=== PATIENT | female | born 1960 | race Caucasian/White ===

== ENCOUNTER → 2016-09-25 | Outpatient (CLI) | payer OTHER ==
--- NOTE | 2016-09-25 09:53 | REPMRS ---
Patient History The patient states she had a clinical breast exam in August 2016. Patient is postmenopausal. Family history of colorectal cancer in maternal grandmother at age 64. Benign radio exam breast specimen of the right breast, October 27, 2012. Benign stereotatic loc for ea lesion of the right breast, October 27, 2012. Took hormonal contraceptives for 2 years. Digital Mammo Screening Bilat: September 25, 2016 - Exam #: [id number] Bilateral CC and MLO view(s) were taken. Technologist: Gabriela Guillermo, Technologist Prior study comparison: September 24, 2015, bilateral digital mammo screening bilat performed at [facility]. September 25, 2014, bilateral digital mammo screening bilat performed at [facility]. September 29, 2013, bilateral digital mammo screening bilat performed at [facility]. FINDINGS: There are scattered fibroglandular densities. There is a needle biopsy marker clip in the right breast. There has been no change in the appearance of the mammogram from the prior studies. There is a mild amount of scattered fibroglandular density which is fairly symmetric. There is no interval development of dominant mass, architectural distortion, or clustered microcalcification suggestive of malignancy. ASSESSMENT: BI-RADS/ACR category 2 mammogram. Benign finding(s). Recommendation Routine screening mammogram in 1 year (for women over age 40). This mammogram was interpreted with the aid of an FDA-approved computer-aided dectection system. Electronically Signed By: Mo Greenberg MD 09/25/16 [id number]
== END ==
LOC: M RAD 08:28
PROVIDERS: ATTEND Obstetrics & Gynecology
DX: Z12.39 Encounter for other screening for malignant neoplasm of breast (principal); Z78.0 Asymptomatic menopausal state

== ENCOUNTER → 2017-09-16 | Outpatient (CLI) | payer OTHER | LOC: M RAD 13:33 | DX: Z12.31 Encounter for screening mammogram for malignant neoplasm of breast (principal); Z92.0 Personal history of contraception; Z92.89 Personal history of other medical treatment | CPT/HCPCS: 77067 ==

== ENCOUNTER → 2018-09-26 | Outpatient (CLI) | payer OTHER ==
--- NOTE | 2018-09-27 06:44 | REP ---
BILATERAL SCREENING DIGITAL MAMMOGRAM WITH 3D TOMOSYNTHESIS: There are no palpable abnormalities or other breast complaints. The the patient states she had a clinical breast examination September 24, 2017. The patient had right breast biopsy in October 2012 that was negative for carcinoma. The Tyrer-Cuzick Score is: 6.4% . Comparisons are 09/24/2015 and 09/29/2013. There are scattered areas of fibroglandular density. There is no dominant mass, micro calcific cluster or architectural distortion that would indicate malignancy. There is a surgical clip in the right breast, unchanged. There are no additional findings on 3D tomosynthesiss. There is no change from the prior study. Impression: BIRADS/ACR category 1 mammogram. Negative. Recommendation: Routine annual screening mammography. This mammogram was interpreted with the aid of a FDA approved computer-aided detection system. A. Negative mammogram reports should not delay biopsy if a dominant or clinically suspicious mass is present. B. Not all breast cancers are identified by mammography or tomosynthesis. C. Adenosis and dense breasts may obscure an underlying neoplasm. Patient letter M1. Electronically Signed by Timmy Zarco MD 09/27/2018 06:36 A
== END ==
LOC: M RAD 17:32
PROVIDERS: ATTEND Obstetrics & Gynecology
DX: Z12.31 Encounter for screening mammogram for malignant neoplasm of breast (principal)

== ENCOUNTER → 2019-10-17 | Outpatient (CLI) | payer BC ==
--- NOTE | 2019-11-02 16:53 | REPMRS ---
Patient History The patient states she had a clinical breast exam in 09/2019. Patient is postmenopausal. Family history of colorectal cancer at age 64 in maternal grandmother. Benign radio exam breast specimen of the right breast, October 27, 2012. Benign stereotatic loc for ea lesion of the right breast, October 27, 2012. Took hormonal contraceptives for 2 years. Digital Woman Screen Mammo: October 17, 2019 - Exam #: [id number] Bilateral CC and MLO view(s) were taken. Technologist: Ailyn Chamorro, Technologist Prior study comparison: September 26, 2018, bilateral digital mammo screening bilat, performed at [facility]. September 16, 2017, bilateral digital mammo screening bilat, performed at [facility]. September 25, 2016, bilateral digital mammo screening bilat, performed at [facility]. October 11, 2012, right breast digital mammo diagnostic unilateral, performed at [facility]. FINDINGS: The breast tissue is almost entirely fat. The Volpara volumetric breast density category is: A. There is a needle biopsy marker clip in the right breast adjacent to some stable punctate microcalcifications which were needle biopsied in 2012. There has been no change in the appearance of the mammogram from the prior studies. There is no interval development of dominant mass, architectural distortion, or grouped microcalcification typical of malignancy. 3-D tomosynthesis shows no additional findings. Assessment: BI-RADS/ACR category 2 mammogram. Benign Findings. Recommendation Routine screening mammogram of both breasts in 1 year (for women over age 40). This patient's Lifetime Breast Cancer RIsk is estimated at 6.2 %. This mammogram was interpreted with the aid of an FDA-approved computer-aided dectection system. Electronically Signed By: Mo Greenberg MD 11/02/19 [id number]
== END ==
LOC: M WHC 10:25
PROVIDERS: ATTEND Obstetrics & Gynecology
DX: Z12.31 Encounter for screening mammogram for malignant neoplasm of breast (principal)

== ENCOUNTER → 2020-04-27 | Outpatient (CLI) | payer BC | LOC: M LABSMTC 08:20 | PROVIDERS: ATTEND Anesthesiology | DX: Z01.812 Encounter for preprocedural laboratory examination (principal); Z20.822 Contact with and (suspected) exposure to COVID-19 ==

== ENCOUNTER 2020-05-02 09:15 | Day surgery (SDC) | payer BC ==
[~2020-05-02] VITALS: Ht 175.3 cm; Wt 108.4 kg
[2020-05-02] MEDS: IRBESARTAN 150MG TAB PO SCH (09:00)
[2020-05-02] MEDS: hydroCHLOROthiazide 12.5 MG CAPSULE PO SCH (09:00)
[2020-05-02] MEDS: PANTOPRAZOLE 40MG TAB (PROTONIX) PO SCH (09:00)
[~2020-05-02 09:15] MED LIST: ACETAMINOPHEN 1000MG 100ML IV BTL (OFIRMEV) (J0131 PER 10MG) As Ordered ONE; IRBE150T14 PO; KETOROLAC 60MG 2ML VIAL As Ordered ONE; LIDOCAINE 1% MDV 20ML VIAL SQ PRN; LIDOCAINE 2% 100MG/5ML SDV (FOR ANES.) As Ordered ONE; LR 1,000 ML IV ONE; METO50TA7 PO; MIDAZOLAM INJ 2MG/2ML VIAL (J2250 PER 1MG) As Ordered ONE; NEXI40CA PO; ONDANSETRON 4MG/2ML VIAL As Ordered ONE; ROCURONIUM BROMIDE 50 MG/5 ML VIAL As Ordered ONE; SUGAMMADEX SODIUM 500 MG/5 ML VIAL (BRIDION) As Ordered ONE; VITA50005 PO; ceFAZolin SOD 2 GM in IV 1 EA IV ONE; dexameTHASONE 4 MG/ML 1ML VIAL (J1100 PER 1MG) As Ordered ONE; fentaNYL 100 MCG/2 ML INJECTION (J3010) As Ordered ONE; propofoL 200 MG/20 ML VIAL As Ordered ONE
--- OUTSIDE RECORDS SUMMARY | 2020-05-02 09:22 | CCD | Continuity of Care Document ---
Author Author Magalys GANDHI Organization Unknown Address [address] [place] [address] Phone [phone] Care Team Providers Care Inbound Customer Service Representative Name Role Phone [facility] AUTM [phone] Problems Active Problems Provider Date Essential hypertension Opal Gandhi MD Onset: 09/04/2011 Social History Type Date Description Comments Sex Unknown Tobacco Use Start: Unknown Never Smoked Cigarettes ETOH Use Non-smoker, Occasional Drinker, Non-drug User Tobacco Use Start: Unknown Patient has never smoked Smoking Status Reviewed: 02/26/20 Patient has never smoked Exercise Type/Frequency Exercises regularly Allergies, Adverse Reactions, Alerts Active Allergies Reaction Severity Comments Date seasonal 10/12/2005 Bactrim 02/26/2020 Medications Active Medications SIG Qnty Indications Ordering Provide r Date Flonase 50mcg/[place] Suspension Opal Gandhi MD 10/12/2005 Multivitamins Tablets Opal Gandhi MD 10/12/2005 Vitamin D (Ergocalciferol) [id number] Capsules Unknown Metoprolol Tartrate 50mg Tablets twice a day Unknown Esomeprazole Magnesium 40mg Capsules DR Unknown Irbesartan-Hydrochlorothiazide 150-12.5mg Tablets Unknown Immunizations Description No Information Available Vital Signs Date Vital Result Comment 02/26/2020 8:48am BP Systolic 178 mmHg BP Diastolic 98 mmHg 09/15/2019 9:37am BP Systolic 114 mmHg BP Diastolic 68 mmHg Height 68.25 inches 5'8.25" Weight 263.00 lb BMI (Body Mass Index) 39.7 kg/m2 BSA (Body Surface Area) 2.30 m2 Results Test Acquired Date Facility Test Result H/L Range Note Thinprep W/Reflex HR HPV If Asc-US 09/15/2019 Pro[facility] th TP Reflex HPV ASCUS Normal Normal 1 TP Reflex HPV ASCUS SEE IMAGE 1 SPECIME N PART A. Cervical, Endocervical, ThinPrep Pap ([place]) CYTOLOGY HX-------- Other Information: Ablation Previous Normal Pap: 09/13/2018 FINAL DIAGNOSIS---- INTERPRETATION: Negative for Intraepithelial Lesion or Malignancy. SPECIMEN ADEQUACY:Satisfactory for evaluation. Endocervical/transformation zone component present. 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 Office Visit 09/15/2019 9:30a [facility] chip bin conveyor tender Opal Gandhi MD Z0 1.419 Encntr for audit clerks supervisor exam (general) (routine) w/o abn findings Z12.4 Encounter for screening for malignant neoplasm of cervix Z12.39 Encounter for oth screening for malignant neoplasm of breast Assessments Date Code Description Provider 02/26/2020 D25.1 Intramural leiomyoma of uterus H Opal perez MD 02/26/2020 R10.2 Pelvic and perineal pain Opal Gandhi MD 02/26/2020 R10.31 Right lower quadrant pain Opal Mayers MD 11/10/2019 D39.11 Neoplasm of uncertain behavior o f right ovary Opal Gandhi MD 09/15/2019 Z01.419 Encounter for gyneco logical examination (general) (routine) without abnormal findings Opal Gandhi MD 09/15/2019 Z12.4 Encounter for screening for felix gnant neoplasm of cervix Opal Gandhi MD 09/15/2019 Z12.39 Encounter for other screening for malignant neoplasm of breast Opal Gandhi MD Plan of Treatment Future Appointment(s):* 06/10/2020 3:00 pm - Opal Gandhi MD at [facility] chip bin conveyor tender * 05/15/2020 3:00 pm - Opal Gandhi MD at [facility] chip bin conveyor tender * 05/02/2020 9:00 am - Opal Gandhi MD at [facility] chip bin conveyor tender * 09/20/2020 10:15 am - Opal Gandhi MD at [facility] chip bin conveyor tender Functional Status Description No Information Available Mental Status Description No Information Available Referrals Description No Information Available
--- OUTSIDE RECORDS SUMMARY | 2020-05-02 09:22 | CCD | Continuity of Care Document ---
Author Author Magalys GANDHI Organization Unknown Address [address] [place] [address] Phone [phone] Care Team Providers Care Field Operations Farm Manager Name Role Phone [facility] AUTM [phone] Problems Active Problems Provider Date Essential hypertension Opal Gandhi MD Onset: 09/04/2011 Social History Type Date Description Comments Sex Unknown Tobacco Use Start: Unknown Never Smoked Cigarettes ETOH Use Non-smoker, Occasional Drinker, Non-drug User Tobacco Use Start: Unknown Patient has never smoked Smoking Status Reviewed: 03/11/20 Patient has never smoked Exercise Type/Frequency Exercises regularly Allergies, Adverse Reactions, Alerts Active Allergies Reaction Severity Comments Date seasonal 10/12/2005 Bactrim 02/26/2020 Medications Active Medications SIG Qnty Indications Ordering Provide r Date Flonase 50mcg/[place] Suspension Opal Gandhi MD 10/12/2005 Multivitamins Tablets Opal Gandhi MD 10/12/2005 Vitamin D (Ergocalciferol) 33912Jaag Capsules Unknown Metoprolol Tartrate 50mg Tablets twice [...] N PART A. Cervical, Endocervical, ThinPrep Pap (Pull Over) CYTOLOGY HX-------- Other Information: Ablation Previous Normal Pap: 09/13/2018 FINAL DIAGNOSIS---- INTERPRETATION: Negative for Intraepithelial Lesion or Malignancy. SPECIMEN ADEQUACY:Satisfactory for evaluation. Endocervical/transformation zone component present. Procedures Date Code Description Status 09/16/2017 [id number] Mammogram Completed 09/24/2015 [id number] Mammogram Completed 09/25/2014 [id number] Mammogram Completed Medical Devices Description No Information Available Encounters Type Date Location Provider Dx Diagnosis Office Visit 03/06/2020 8:45a [facility] stone derrickman and rigger Opal Gandhi MD D2 5.1 Intramural leiomyoma of uterus R10.2 Pelvic and perineal pain R10.31 Right lower quadrant pain Office Visit 02/26/2020 8:45a [facility] stone derrickman and rigger Opal Gandhi MD D2 5.1 Intramural leiomyoma of uterus R10.2 Pelvic and perineal pain R10.31 Right lower quadrant pain Office Visit 11/10/2019 10:15a [facility] stone derrickman and rigger Opal Gandhi MD 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 Office Visit 09/15/2019 9:30a [facility] stone derrickman and rigger Opal Gandhi MD Z0 1.419 Encntr for environmental associate exam (general) (routine) w/o abn findings Z12.4 Encounter for screening for malignant neoplasm of cervix Z12.39 Encounter for oth screening for malignant neoplasm of breast Assessments Date Code Description Provider 03/06/2020 D25.1 Intramural leiomyoma of uterus H Opal perez MD 03/06/2020 R10.2 Pelvic and perineal pain Opal Gandhi MD 03/06/2020 R10.31 Right lower quadrant pain Opal Mayers MD 02/26/2020 D25.1 Intramural leiomyoma of uterus H [...] 3:00 pm - Opal Gandhi MD at [facility] stone derrickman and rigger * 05/15/2020 3:00 pm - Opal Gandhi MD at [facility] stone derrickman and rigger * 05/02/2020 9:00 am - Opal Gandhi MD at [facility] stone derrickman and rigger * 09/20/2020 10:15 am - Opal Gandhi MD at [facility] stone derrickman and rigger 03/06/2020 - Opal Gandhi MD* D25.1 Intramural leiomyoma of uterus * R10.2 Pelvic and perineal pain * R10.31 Right lower quadrant pain Functional Status Description No Information Available Mental Status Description No Information Available Referrals Description No Information Available
--- OUTSIDE RECORDS SUMMARY | 2020-05-02 09:23 | CCD | Continuity of Care Document ---
Author Author Magalys GANDHI Organization Unknown Address [address] [place] [address] Phone [phone] Care Team Providers Care Crew Person Name Role Phone [facility] AUTM [phone] Problems Active Problems Provider Date Essential hypertension [...] Allergies Reaction Severity Comments Date seasonal 10/12/2005 Medications Active Medications SIG Qnty Indications Ordering Provide r Date Flonase 50mcg/[place] Suspension Opal Gandhi MD 10/12/2005 Multivitamins Tablets Opal Gandhi MD 10/12/2005 Vitamin D (Ergocalciferol) 73828Fljl Capsules Unknown Metoprolol Tartrate 50mg Tablets twice [...] N PART A. Cervical, Endocervical, ThinPrep Pap (Mucking Machine Operator) CYTOLOGY HX-------- Other Information: Ablation Previous Normal Pap: 09/13/2018 FINAL DIAGNOSIS---- INTERPRETATION: Negative for Intraepithelial Lesion or Malignancy. SPECIMEN ADEQUACY:Satisfactory for evaluation. Endocervical/transformation zone component present. 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 Office Visit 09/15/2019 9:30a [place] [facility] director [employer] Opal Gandhi MD Z0 1.419 Encntr for pilot boat deckhand exam (general) (routine) w/o abn findings Z12.4 [...] Gandhi MD Plan of Treatment Future Appointment(s):* 09/20/2020 10:15 am - Opal Gandhi MD at [facility] director [employer] 02/26/2020 - Opal Gandhi MD* D25.1 Intramural leiomyoma of uterus* New Xrays: * MRI, Pelvis, W/ & W/O Contrast, Ordered: 02/26/20 * R10.2 Pelvic and perineal pain * R10.31 Right lower quadrant pain Functional Status Description No Information Available Mental Status Description No Information Available Referrals Description No Information Available
--- OUTSIDE RECORDS SUMMARY | 2020-05-02 09:23 | CCD | Continuity of Care Document ---
Author Author Magalys GANDHI Organization Unknown Address [address] [place] [address] Phone [phone] Care Team Providers Care Manager Critical Care Unit Name Role Phone [facility] AUTM [phone] Problems Active Problems Provider Date Essential hypertension [...] Qnty Indications Ordering Provide r Date Flonase 50mcg/[place] Suspension Opal Gandhi MD 10/12/2005 Multivitamins Tablets Opal Gandhi MD 10/12/2005 Vitamin D (Ergocalciferol) 13071Wlys Capsules Unknown Metoprolol Tartrate 50mg Tablets twice [...] N PART A. Cervical, Endocervical, ThinPrep Pap (Pipe Bowl Paint Trimmer) CYTOLOGY HX-------- Other Information: Ablation Previous Normal Pap: 09/13/2018 FINAL DIAGNOSIS---- INTERPRETATION: Negative for Intraepithelial Lesion or Malignancy. SPECIMEN ADEQUACY:Satisfactory for evaluation. Endocervical/transformation zone component present. 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 Office Visit 09/15/2019 9:30a [facility] wildlife removal specialist Opal Gandhi MD Z0 1.419 Encntr for dry house attendant exam (general) (routine) w/o abn findings Z12.4 [...] logical examination (general) (routine) without abnormal findings Oapl Gandhi MD 09/15/2019 Z12.4 Encounter for screening for felix gnant neoplasm of cervix Opal Gandhi MD 09/15/2019 Z12.39 Encounter for other screening for malignant neoplasm of breast Opal Gandhi MD Plan of Treatment Future Appointment(s):* 03/06/2020 8:45 am - Opal Gandhi MD at [facility] wildlife removal specialist * 09/20/2020 10:15 am - Opal Gandhi MD at [facility] wildlife removal specialist 02/26/2020 - Opal Gandhi MD* D25.1 Intramural leiomyoma of uterus* New Xrays: * MRI, Pelvis, W/ & W/O Contrast, Ordered: 02/26/20 * R10.2 Pelvic and perineal pain * R10.31 Right lower quadrant pain Functional Status Description No Information Available Mental Status Description No Information Available Referrals Description No Information Available
--- OUTSIDE RECORDS SUMMARY | 2020-05-02 09:24 | CCD ---
Author Author [facility] Organization [facility] Address Unknown Phone Unavailable Care Team Providers Care Education Teacher Name Role Phone Kocan, J Meredith AUTOMATIC SPOOLER OPERATOR Unavailable Unavailable Kocan, J Meredith AUTOMATIC SPOOLER OPERATOR Unavailable Unavailable Kocan, J Meredith AUTOMATIC SPOOLER OPERATOR Unavailable Unavailable Kocan, J Meredith AUTOMATIC SPOOLER OPERATOR Unavailable Unavailable Kocan, J Meredith AUTOMATIC SPOOLER OPERATOR Unavailable Unavailable Kocan, J Meredith AUTOMATIC SPOOLER OPERATOR Unavailable Unavailable Kocan, J Meredith AUTOMATIC SPOOLER OPERATOR Unavailable Unavailable Kocan, J Meredith AUTOMATIC SPOOLER OPERATOR Unavailable Unavailable Kocan, J Meredith AUTOMATIC SPOOLER OPERATOR Unavailable Unavailable Kocan, J Meredith AUTOMATIC SPOOLER OPERATOR Unavailable Unavailable Kocan, J Meredith AUTOMATIC SPOOLER OPERATOR Unavailable Unavailable Kocan, J Meredith AUTOMATIC SPOOLER OPERATOR Unavailable Unavailable Kocan, J Meredith AUTOMATIC SPOOLER OPERATOR Unavailable Unavailable Octavia Aldrich MD, [place] Unavailable [phone] Octavia Aldrich MD, [place] Unavailable [phone] Octavia Aldrich MD, [place] Unavailable [phone] Octavia Aldrich MD, [place] Unavailable [phone] Octavia Aldrich MD, [place] Unavailable [phone] Octavia Aldrich MD, [place] Unavailable [phone] Octavia Aldrich MD, ND Unavailable [phone] Octavia Aldrich MD, [place] Unavailable [phone] Octavia Aldrich MD, [place] Unavailable [phone] Octavia Aldrich MD, [place] Unavailable [phone] Valdemar CARTER, Octavia [place] Unavailable [phone] Valdemar CARTER, Octavia [place] Unavailable [phone] Valdemar CARTER, Octavia [place] Unavailable [phone] Valdemar CARTER, Octavia [place] Unavailable [phone] Valdemar CARTER, Octavia [place] Unavailable [phone] Valdemar CARTER, Octavia [place] Unavailable [phone] Valdemar CARTER, Octavia [place] Unavailable [phone] Valdemar CARTER, Octavia [place] Unavailable [phone] Valdemar CARTER, Octavia ND Unavailable [phone] Valdemar CARTER, Octavia ND Unavailable [phone] Valdemar CARTER, Octavia ND Unavailable [phone] Valdemar CARTER, Octavia ND Unavailable [phone] Valdemar CARTER, Octavia ND Unavailable [phone] DANO, [place] STUDENT TRUCK DRIVER Unavailable Unavailable DANO, [place] STUDENT TRUCK DRIVER Unavailable Unavailable DANO, [place] STUDENT TRUCK DRIVER Unavailable Unavailable MATSON, [place] STUDENT TRUCK DRIVER Unavailable Unavailable MATSON, [place] STUDENT TRUCK DRIVER Unavailable Unavailable DANO, [place] STUDENT TRUCK DRIVER Unavailable Unavailable MATSON, [place] STUDENT TRUCK DRIVER Unavailable Unavailable DANO, [place] STUDENT TRUCK DRIVER Unavailable Unavailable MATSON, [place] STUDENT TRUCK DRIVER Unavailable Unavailable MATSON, [place] STUDENT TRUCK DRIVER Unavailable Unavailable MATSON, [place] STUDENT TRUCK DRIVER Unavailable Unavailable MATSON, [place] STUDENT TRUCK DRIVER Unavailable Unavailable MATSON, [place] STUDENT TRUCK DRIVER Unavailable Unavailable MATSON, [place] STUDENT TRUCK DRIVER Unavailable Unavailable MATSON, [place] STUDENT TRUCK DRIVER Unavailable Unavailable MATSON, [place] STUDENT TRUCK DRIVER Unavailable Unavailable MATSON, [place] STUDENT TRUCK DRIVER Unavailable Unavailable MATSON, [place] STUDENT TRUCK DRIVER Unavailable Unavailable MATSON, [place] STUDENT TRUCK DRIVER Unavailable Unavailable MATSON, [place] STUDENT TRUCK DRIVER Unavailable Unavailable MATSON, [place] STUDENT TRUCK DRIVER Unavailable Unavailable MATSON, [place] STUDENT TRUCK DRIVER Unavailable Unavailable MATSON, [place]OE STUDENT TRUCK DRIVER Unavailable Unavailable MATSON, [place] STUDENT TRUCK DRIVER Unavailable Unavailable MATSON, [place] STUDENT TRUCK DRIVER Unavailable Unavailable MATSON, [place] STUDENT TRUCK DRIVER Unavailable Unavailable MATSON, [place] STUDENT TRUCK DRIVER Unavailable Unavailable MATSON, [place] STUDENT TRUCK DRIVER Unavailable Unavailable MATSON, [place] STUDENT TRUCK DRIVER Unavailable Unavailable MATSON, [place] STUDENT TRUCK DRIVER Unavailable Unavailable MATSON, [place] STUDENT TRUCK DRIVER Unavailable Unavailable MATSON, [place] STUDENT TRUCK DRIVER Unavailable Unavailable MATSON, [place] STUDENT TRUCK DRIVER Unavailable Unavailable MATSON, [place] STUDENT TRUCK DRIVER Unavailable Unavailable MATSON, [place] STUDENT TRUCK DRIVER Unavailable Unavailable MATSON, [place] STUDENT TRUCK DRIVER Unavailable Unavailable MATSON, [place] STUDENT TRUCK DRIVER Unavailable Unavailable MATSON, [place] STUDENT TRUCK DRIVER Unavailable Unavailable MATSON, [place] STUDENT TRUCK DRIVER Unavailable Unavailable MATSON, [place] STUDENT TRUCK DRIVER Unavailable Unavailable MATSON, [place] STUDENT TRUCK DRIVER Unavailable Unavailable MATSON, [place] STUDENT TRUCK DRIVER Unavailable Unavailable MATSON, [place] STUDENT TRUCK DRIVER Unavailable Unavailable MATSON, [place] STUDENT TRUCK DRIVER Unavailable Unavailable MATSON, [place] STUDENT TRUCK DRIVER Unavailable Unavailable MATSON, [place] STUDENT TRUCK DRIVER Unavailable Unavailable MATSON, [place] STUDENT TRUCK DRIVER Unavailable Unavailable MATSON, [place] STUDENT TRUCK DRIVER Unavailable Unavailable MATSON, [place] STUDENT TRUCK DRIVER Unavailable Unavailable MATSON, [place] STUDENT TRUCK DRIVER Unavailable Unavailable GANDHI, Drew ESTRELLA MD Unavailable Unavailable GANDHI, Drew ESTRELLA MD Unavailable Unavailable GANDHI, Drew ESTRELLA MD Unavailable Unavailable GANDHI, Drew ESTRELLA MD Unavailable Unavailable GANDHI, Drew ESTRELLA MD Unavailable Unavailable GANDHI, Drew ESTRELLA MD Unavailable Unavailable GANDHI, Drew ESTRELLA MD Unavailable Unavailable GANDHI, Drew ESTRELLA MD Unavailable Unavailable GANDHI, Drew ESTRELLA MD Unavailable Unavailable GANDHI, Drew ESTRELLA MD Unavailable Unavailable GANDHIDrew MD Unavailable Unavailable GANDHIDrew MD Unavailable Unavailable GANDHI, Drew ESTRELLA MD Unavailable Unavailable GANDHI, Drew ESTRELLA MD Unavailable Unavailable GANDHI, Drew ESTRELLA MD Unavailable Unavailable GANDHI, Drew ESTRELLA MD Unavailable Unavailable GANDHI, Drew ESTRELLA MD Unavailable Unavailable GANDHIDrew MD Unavailable Unavailable GANDHI, Drew ESTRELLA MD Unavailable Unavailable GANDHI, Drew ESTRELLA MD Unavailable Unavailable GANDHI, Drew ESTRELLA MD Unavailable Unavailable GANDHI, Drew ESTRELLA MD Unavailable Unavailable GANDHI, Drew ESTRELLA MD Unavailable Unavailable GANDHI, Drew ESTRELLA MD Unavailable Unavailable GANDHI, Drew ESTRELLA MD Unavailable Unavailable GANDHI, Drew ESTRELLA MD Unavailable Unavailable GANDHI, Drew ESTRELLA MD Unavailable Unavailable GANDHI, Drew ESTRELLA MD Unavailable Unavailable GANDHI, Drew ESTRELLA MD Unavailable Unavailable GANDHI, L DELORES CARTER Unavailable Unavailable GANDHI, L DELORES MD Unavailable Unavailable GANDHI, L DELORES MD Unavailable Unavailable GANDHI, L DELORES MD Unavailable Unavailable GANDHI, L DELORES MD Unavailable Unavailable GANDHI, L DELORES MD Unavailable Unavailable GANDHI, L DELORES MD Unavailable Unavailable GANDHI, L DELORES MD Unavailable Unavailable GANDHI, L DELORES MD Unavailable Unavailable GANDHI, L DELORES MD Unavailable Unavailable GANDHI, L DELORES MD Unavailable Unavailable GANDHI, L DELORES MD Unavailable Unavailable GANDHI, L DELORES MD Unavailable Unavailable GANDHI, L DELORES MD Unavailable Unavailable Brooke Aldrich MD Unavailable Unavailable Re-disclosure Warning The records that you are about to access may contain information from federally-assisted alcohol or drug abuse programs. If such information is present, then the following federally mandated warning applies: This information has been disclosed to you from records protected by federal confidentiality rules (42 CFR part 2). The federal rules prohibit you from making any further disclosure of this information unless further disclosure is expressly permitted by the written consent of the person to whom it pertains or as otherwise permitted by 42 CFR part 2. A general authorization for the release of medical or other information is NOT sufficient for this purpose. The Federal rules restrict any use of the information to criminally investigate or prosecute any alcohol or drug abuse patient.The records that you are about to access may contain highly sensitive health information, the redisclosure of which is protected by Article 27-F of the [facility] Public [facility] law. If you continue you may have access to information: Regarding HIV / AIDS; Provided by facilities licensed or operated by the [facility] Office of Mental Health; or Provided by the [facility] Office for People With Developmental Disabilities. If such information is present, then the following [facility] mandated warning applies: This information has been disclosed to you from confidential records which are protected by state law. State law prohibits you from making any further disclosure of this information without the specific written consent of the person to whom it pertains, or as otherwise permitted by law. Any unauthorized further disclosure in violation of state law may result in a fine or senior care sentence or both. A general authorization for the release of medical or other information is NOT sufficient authorization for further disc losure. 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 Outpatient Attender: Meredith KWON SJP-SJP.GVR 2020 12:00:00 AM EST - 04/15/2020 04:14:59 PM EST [facility] Outpatient Attender: DELORES GANDHI MD [employer] clinical psychology professor 07:45:00 AM EST [facility] ([employer] RAW FINISH MILL OPERATOR) Outpatient Attender: DELORES GANDHI MD ED-IMAG 02/27 09:53:00 AM EST - 02/28/2020 09:54:00 AM EST INTRAMURAL LEIOMYOMA OF UTERUS [facility] INTRAMURAL LEIOMYOMA OF UTERUS Patient discharged. Outpatient Attender: DELORES [employer] clinical psychology professor 07:45:00 AM EST [facility] ([employer] RAW FINISH MILL OPERATOR) Outpatient Attender: DELORES GANDHI MD [employer] clinical psychology professor 06/2019 10:15:00 AM EDT [facility]ENT ([employer] RAW FINISH MILL OPERATOR) Outpatient Attender: Octavia Aldrich MDReferrer: DELORES PATEL MD ED-IMAG 11/10/2019 07:51:00 AM EDT - 11/10/2019 07:52:00 AM EDT PELVIC MASS [facility] PELVIC MASS Patient discharged. Outpatient Attender: Octavia Aldrich MD ED-IMAG 0 11/02/2019 01:18:00 PM EDT - 11/02/2019 01:19:00 PM EDT [id number] [facility] [id number] Patient discharged. Outpatient CPSCAORT-LABEJN 10/30/2019 08:10:00 PM EDT [facility] Outpatient Attender: DELORES GANDHI MD ED-LAB 10/29 02:10:00 PM EDT - 10/30/2019 02:11:00 PM EDT D39.12 [facility] D39.12 Patient discharged. Outpatient CPSCAORT-LABEJN 10/26/2019 10:08:00 AM EDT [facility] Outpatient Attender: Octavia Aldrich MDAttender: Octavia Aldrich MD ED-IMAG 10/26/2019 07:47:00 AM EDT - 10/26/2019 07:48:00 AM ED T R19.04 I10 E782 E559 E119 [facility] R19.04 I10 E782 E559 E119 Patient discharged. Outpatient Attender: DELORES GANDHI MD [employer] clinical psychology professor 12/2019 09:30:00 AM EDT MEDENT ([employer] RAW FINISH MILL OPERATOR) Outpatient Attender: Octavia Aldrich MD ED-HCCDEKPCP 0 08/08/2019 03:55:00 PM EDT - 08/08/2019 03:56:00 PM EDT [facility] Patient discharged. Outpatient Attender: ZOE MATSON STUDENT TRUCK DRIVER ED-HCCANTPCP 03:42:00 PM EST - 04/25/2019 03:43:00 PM EST [facility] Patient discharged. Outpatient Attender: ZOE MATSON NP ED-LAB 11:05:00 AM EST - 04/22/2019 11:06:00 AM EST [address] [place] [address] E119 Patient discharged. Immunizations Vaccine Date Status Description Data Source(s) INFLUENZA VIRUS VACCINE QUADRIVALENT 2020-21 (6 MOS AN D UP) 12/30/2019 12:00:00 AM EDT completed [facility] Medications Medication Brand Name Start Date Product Form Dose Route Admi nistrative Instructions Pharmacy Instructions Status Indications Reaction Description Data Source(s) 150-12.5 mg 03/23/2020 12:00:00 AM EST tablet 30 TAKE ONE TABLET BY MOUTH EVERY MORNING TAKE ONE TABLET BY MOUTH EVERY MORNING SOLD: 04/26/2020 [facility] 150-12.5 mg 03/23/2020 12:00:00 AM EST tablet 30 TAKE ONE TABLET BY MOUTH EVERY MORNING TAKE ONE TABLET BY MOUTH EVERY MORNING SOLD: 03/26/2020 [facility] 50 mg 02/23/2020 12:00:00 AM EST tablet 60 TAKE ONE TABLET BY MOUTH TWICE A DAY TAKE ONE TABLET BY MOUTH TWICE A DAY SOLD: 02/24/2020 [facility] 40 mg 10/25/2019 12:00:00 AM EDT capsule,delayed release (DR/EC) 30 TAKE ONE CAPSULE BY MOUTH EVERY MORNING TAKE ONE CAPSULE BY MOUTH EVERY MORNING SOLD: 04/26/2020 [facility] Esomeprazole 40 MG Delayed Release Oral Capsule ESOMEPRAZOLE MAGNESIUM 10/25/2019 12:00:00 AM EDT capsule,delayed release(DR/EC) 30 TAKE ONE CAPSULE BY MOUTH EVERY MORNING TAKE ONE CAPSULE BY MOUTH EVERY MORNING SOLD: 12/24/2019 [facility] Esomeprazole 40 MG Delayed Release Oral Capsule ESOMEPRAZOLE MAGNESIUM 10/25/2019 12:00:00 AM EDT capsule,delayed release(DR/EC) 30 TAKE ONE CAPSULE BY MOUTH EVERY MORNING TAKE ONE CAPSULE BY MOUTH EVERY MORNING SOLD: 11/26/2019 [facility] Esomeprazole 40 MG Delayed Release Oral Capsule ESOMEPRAZOLE MAGNESIUM 10/25/2019 12:00:00 AM EDT capsule,delayed release(DR/EC) 30 TAKE ONE CAPSULE BY MOUTH EVERY MORNING TAKE ONE CAPSULE BY MOUTH EVERY MORNING SOLD: 10/27/2019 [facility] Esomeprazole 40 MG Delayed Release Oral Capsule ESOMEPRAZOLE MAGNESIUM 10/25/2019 12:00:00 AM EDT capsule,delayed release(DR/EC) 30 TAKE ONE CAPSULE BY MOUTH EVERY MORNING TAKE ONE CAPSULE BY MOUTH EVERY MORNING SOLD: 01/26/2020 [facility] 40 mg 10/25/2019 12:00:00 AM EDT capsule,delayed release (DR/EC) 30 TAKE ONE CAPSULE BY MOUTH EVERY MORNING TAKE ONE CAPSULE BY MOUTH EVERY MORNING SOLD: 03/26/2020 [facility] Esomeprazole 40 MG Delayed Release Oral Capsule ESOMEPRAZOLE MAGNESIUM 10/25/2019 12:00:00 AM EDT capsule,delayed release(DR/EC) 30 TAKE ONE CAPSULE BY MOUTH EVERY MORNING TAKE ONE CAPSULE BY MOUTH EVERY MORNING SOLD: 02/24/2020 [facility] 1,250 mcg (50,000 unit) 10/23/2019 12:00:00 AM EDT capsule 4 TAKE ONE CAPSULE BY MOUTH ONCE WEEKLY TAKE ONE CAPSULE BY MOUTH ONCE WEEKLY SOLD: 12/24/2019 [facility] 1,250 mcg (50,000 unit) 10/23/2019 12:00:00 AM EDT capsule 4 TAKE ONE CAPSULE BY MOUTH ONCE WEEKLY TAKE ONE CAPSULE BY MOUTH ONCE WEEKLY SOLD: 11/26/2019 [facility] 1,250 mcg (50,000 unit) 10/23/2019 12:00:00 AM EDT capsule 4 TAKE ONE CAPSULE BY MOUTH ONCE WEEKLY TAKE ONE CAPSULE BY MOUTH ONCE WEEKLY SOLD: 10/24/2019 [facility] 1,250 mcg (50,000 unit) 10/23/2019 12:00:00 AM EDT capsule 4 TAKE ONE CAPSULE BY MOUTH ONCE WEEKLY TAKE ONE CAPSULE BY MOUTH ONCE WEEKLY SOLD: 04/26/2020 [facility] 1,250 mcg (50,000 unit) 10/23/2019 12:00:00 AM EDT capsule 4 TAKE ONE CAPSULE BY MOUTH ONCE WEEKLY TAKE ONE CAPSULE BY MOUTH ONCE WEEKLY SOLD: 03/26/2020 [facility] 1,250 mcg (50,000 unit) 10/23/2019 12:00:00 AM EDT capsule 4 TAKE ONE CAPSULE BY MOUTH ONCE WEEKLY TAKE ONE CAPSULE BY MOUTH ONCE WEEKLY SOLD: 01/26/2020 [facility] 1,250 mcg (50,000 unit) 10/23/2019 12:00:00 AM EDT capsule 4 TAKE ONE CAPSULE BY MOUTH ONCE WEEKLY TAKE ONE CAPSULE BY MOUTH ONCE WEEKLY SOLD: 02/24/2020 [facility] 150-12.5 mg 06/19/2019 12:00:00 AM EDT tablet 30 TAKE ONE TABLET BY MOUTH EVERY DAY TAKE ONE TABLET BY MOUTH EVERY DAY SOLD: 08/27/2019 [facility] 150-12.5 mg 06/19/2019 12:00:00 AM EDT tablet 30 TAKE ONE TABLET BY MOUTH EVERY DAY TAKE ONE TABLET BY MOUTH EVERY DAY SOLD: 07/27/2019 [facility] 150-12.5 mg 06/19/2019 12:00:00 AM EDT tablet 30 TAKE ONE TABLET BY MOUTH EVERY DAY TAKE ONE TABLET BY MOUTH EVERY DAY SOLD: 06/22/2019 [facility] 150-12.5 mg 06/19/2019 12:00:00 AM EDT tablet 30 TAKE ONE TABLET BY MOUTH EVERY DAY TAKE ONE TABLET BY MOUTH EVERY DAY SOLD: 09/27/2019 [facility] 150-12.5 mg 06/19/2019 12:00:00 AM EDT tablet 30 TAKE ONE TABLET BY MOUTH EVERY DAY TAKE ONE TABLET BY MOUTH EVERY DAY SOLD: 10/27/2019 [facility] 150-12.5 mg 06/19/2019 12:00:00 AM EDT tablet 30 TAKE ONE TABLET BY MOUTH EVERY DAY TAKE ONE TABLET BY MOUTH EVERY DAY SOLD: 11/26/2019 [facility] 150-12.5 mg 06/19/2019 12:00:00 AM EDT tablet 30 TAKE ONE TABLET BY MOUTH EVERY DAY TAKE ONE TABLET BY MOUTH EVERY DAY SOLD: 12/24/2019 [facility] 150-12.5 mg 06/19/2019 12:00:00 AM EDT tablet 30 TAKE ONE TABLET BY MOUTH EVERY DAY TAKE ONE TABLET BY MOUTH EVERY DAY SOLD: 01/26/2020 [facility] 150-12.5 mg 06/19/2019 12:00:00 AM EDT tablet 30 TAKE ONE TABLET BY MOUTH EVERY DAY TAKE ONE TABLET BY MOUTH EVERY DAY SOLD: 02/24/2020 [facility] 50 mg 04/28/2019 12:00:00 AM EST tablet 60 TAKE ONE TABLET BY MOUTH TWICE A DAY TAKE ONE TABLET BY MOUTH TWICE A DAY SOLD: 11/26/2019 [facility] 50 mg 04/28/2019 12:00:00 AM EST tablet 60 TAKE ONE TABLET BY MOUTH TWICE A DAY TAKE ONE TABLET BY MOUTH TWICE A DAY SOLD: 10/24/2019 [facility] 50 mg 04/28/2019 12:00:00 AM EST tablet 60 TAKE ONE TABLET BY MOUTH TWICE A DAY TAKE ONE TABLET BY MOUTH TWICE A DAY SOLD: 12/24/2019 [facility] 50 mg 04/28/2019 12:00:00 AM EST tablet 60 TAKE ONE TABLET BY MOUTH TWICE A DAY TAKE ONE TABLET BY MOUTH TWICE A DAY SOLD: 01/26/2020 [facility] 50 mg 04/28/2019 12:00:00 AM EST tablet 60 TAKE ONE TABLET BY MOUTH TWICE A DAY TAKE ONE TABLET BY MOUTH TWICE A DAY SOLD: 08/14/2019 [facility] 50 mg 04/28/2019 12:00:00 AM EST tablet 60 TAKE ONE TABLET BY MOUTH TWICE A DAY TAKE ONE TABLET BY MOUTH TWICE A DAY SOLD: 07/10/2019 [facility] 50 mg 04/28/2019 12:00:00 AM EST tablet 60 TAKE ONE TABLET BY MOUTH TWICE A DAY TAKE ONE TABLET BY MOUTH TWICE A DAY SOLD: 05/01/2019 [facility] 50 mg 04/28/2019 12:00:00 AM EST tablet 60 TAKE ONE TABLET BY MOUTH TWICE A DAY TAKE ONE TABLET BY MOUTH TWICE A DAY SOLD: 09/19/2019 [facility] 50 mg 04/28/2019 12:00:00 AM EST tablet 60 TAKE ONE TABLET BY MOUTH TWICE A DAY TAKE ONE TABLET BY MOUTH TWICE A DAY SOLD: 06/03/2019 [facility] 500 mg 04/26/2019 12:00:00 AM EST tablet extended release 24 hr 30 TAKE ONE TABLET BY MOUTH EVERY DAY WITH EVENING MEAL TAKE ONE TABLET BY MOUTH EVERY DAY WITH EVENING MEAL SOLD: 11/26/2019 [facility] 500 mg 04/26/2019 12:00:00 AM EST tablet extended release 24 hr 30 TAKE ONE TABLET BY MOUTH EVERY DAY WITH EVENING MEAL TAKE ONE TABLET BY MOUTH EVERY DAY WITH EVENING MEAL SOLD: 06/03/2019 [facility] 500 mg 04/26/2019 12:00:00 AM EST tablet extended release 24 hr 30 TAKE ONE TABLET BY MOUTH EVERY DAY WITH EVENING MEAL TAKE ONE TABLET BY MOUTH EVERY DAY WITH EVENING MEAL SOLD: 07/10/2019 [facility] 500 mg 04/26/2019 12:00:00 AM EST tablet extended release 24 hr 30 TAKE ONE TABLET BY MOUTH EVERY DAY WITH EVENING MEAL TAKE ONE TABLET BY MOUTH EVERY DAY WITH EVENING MEAL SOLD: 08/14/2019 [facility] 500 mg 04/26/2019 12:00:00 AM EST tablet extended release 24 hr 30 TAKE ONE TABLET BY MOUTH EVERY DAY WITH EVENING MEAL TAKE ONE TABLET BY MOUTH EVERY DAY WITH EVENING MEAL SOLD: 12/24/2019 [facility] 500 mg 04/26/2019 12:00:00 AM EST tablet extended release 24 hr 30 TAKE ONE TABLET BY MOUTH EVERY DAY WITH EVENING MEAL TAKE ONE TABLET BY MOUTH EVERY DAY WITH EVENING MEAL SOLD: 10/24/2019 [facility] 500 mg 04/26/2019 12:00:00 AM EST tablet extended release 24 hr 30 TAKE ONE TABLET BY MOUTH EVERY DAY WITH EVENING MEAL TAKE ONE TABLET BY MOUTH EVERY DAY WITH EVENING MEAL SOLD: 09/19/2019 [facility] 500 mg 04/26/2019 12:00:00 AM EST tablet extended release 24 hr 30 TAKE ONE TABLET BY MOUTH EVERY DAY WITH EVENING MEAL TAKE ONE TABLET BY MOUTH EVERY DAY WITH EVENING MEAL SOLD: 05/01/2019 [facility] 150-12.5 mg 02/24/2019 12:00:00 AM EST tablet 30 TAKE ONE TABLET BY MOUTH EVERY DAY TAKE ONE TABLET BY MOUTH EVERY DAY SOLD: 05/22/2019 [facility] 150-12.5 mg 02/24/2019 12:00:00 AM EST tablet 30 TAKE ONE TABLET BY MOUTH EVERY DAY TAKE ONE TABLET BY MOUTH EVERY DAY SOLD: 04/25/2019 [facility] 150-12.5 mg 02/24/2019 12:00:00 AM EST tablet 30 TAKE ONE TABLET BY MOUTH EVERY DAY TAKE ONE TABLET BY MOUTH EVERY DAY SOLD: 03/27/2019 [facility] 40 mg 10/25/2018 12:00:00 AM EDT capsule,delayed release (DR/EC) 30 TAKE ONE CAPSULE BY MOUTH EVERY DAY TAKE ONE CAPSULE BY MOUTH EVERY DAY SOLD: 06/22/2019 [facility] 40 mg 10/25/2018 12:00:00 AM EDT capsule,delayed release (DR/EC) 30 TAKE ONE CAPSULE BY MOUTH EVERY DAY TAKE ONE CAPSULE BY MOUTH EVERY DAY SOLD: 05/22/2019 [facility] 40 mg 10/25/2018 12:00:00 AM EDT capsule,delayed release (DR/EC) 30 TAKE ONE CAPSULE BY MOUTH EVERY DAY TAKE ONE CAPSULE BY MOUTH EVERY DAY SOLD: 04/25/2019 [facility] 40 mg 10/25/2018 12:00:00 AM EDT capsule,delayed release (DR/EC) 30 TAKE ONE CAPSULE BY MOUTH EVERY DAY TAKE ONE CAPSULE BY MOUTH EVERY DAY SOLD: 07/27/2019 [facility] Esomeprazole 40 MG Delayed Release Oral Capsule ESOMEPRAZOLE MAGNESIUM 10/25/2018 12:00:00 AM EDT capsule,delayed release(DR/EC) 30 TAKE ONE CAPSULE BY MOUTH EVERY DAY TAKE ONE CAPSULE BY MOUTH EVERY DAY SOLD: 09/27/2019 [facility] 40 mg 10/25/2018 12:00:00 AM EDT capsule,delayed release (DR/EC) 30 TAKE ONE CAPSULE BY MOUTH EVERY DAY TAKE ONE CAPSULE BY MOUTH EVERY DAY SOLD: 08/27/2019 [facility] 40 mg 10/25/2018 12:00:00 AM EDT capsule,delayed release (DR/EC) 30 TAKE ONE CAPSULE BY MOUTH EVERY DAY TAKE ONE CAPSULE BY MOUTH EVERY DAY SOLD: 03/27/2019 [facility] 1,250 mcg (50,000 unit) 10/20/2018 12:00:00 AM EDT capsule 4 TAKE 1 CAPSULE BY MOUTH ONCE WEEKLY TAKE 1 CAPSULE BY MOUTH ONCE WEEKLY SOLD: 09/27/2019 [facility] 1,250 mcg (50,000 unit) 10/20/2018 12:00:00 AM EDT capsule 4 TAKE 1 CAPSULE BY MOUTH ONCE WEEKLY TAKE 1 CAPSULE BY MOUTH ONCE WEEKLY SOLD: 05/22/2019 [facility] 1,250 mcg (50,000 unit) 10/20/2018 12:00:00 AM EDT capsule 4 TAKE 1 CAPSULE BY MOUTH ONCE WEEKLY TAKE 1 CAPSULE BY MOUTH ONCE WEEKLY SOLD: 07/27/2019 [facility] 1,250 mcg (50,000 unit) 10/20/2018 12:00:00 AM EDT capsule 4 TAKE 1 CAPSULE BY MOUTH ONCE WEEKLY TAKE 1 CAPSULE BY MOUTH ONCE WEEKLY SOLD: 06/22/2019 [facility] 1,250 mcg (50,000 unit) 10/20/2018 12:00:00 AM EDT capsule 4 TAKE 1 CAPSULE BY MOUTH ONCE WEEKLY TAKE 1 CAPSULE BY MOUTH ONCE WEEKLY SOLD: 08/27/2019 [facility] 1,250 mcg (50,000 unit) 10/20/2018 12:00:00 AM EDT capsule 4 TAKE 1 CAPSULE BY MOUTH ONCE WEEKLY TAKE 1 CAPSULE BY MOUTH ONCE WEEKLY SOLD: 04/25/2019 [facility] 1,250 mcg (50,000 unit) 10/20/2018 12:00:00 AM EDT capsule 4 TAKE 1 CAPSULE BY MOUTH ONCE WEEKLY TAKE 1 CAPSULE BY MOUTH ONCE WEEKLY SOLD: 03/27/2019 [facility] 50 mg 07/26/2018 12:00:00 AM EDT tablet 60 TAKE ONE TABLET BY MOUTH TWICE A DAY TAKE ONE TABLET BY MOUTH TWICE A DAY SOLD: 03/27/2019 [facility] Insurance Providers Payer name Policy type / Coverage type Policy ID Covered libertarian ID Covered libertarian's relationship to faria Policy Faria Plan Information [employer] [place]/307 [id number] SP [id number] [employer] [place]/307 [id number] SP [id number] [employer] [place] [id number] S [id number] [employer] [id number] Sarah VYK [id number] [employer] B [id number] S [id number] [facility] [id number] S [id number] [facility] [place] [id number] [place] [id number] [employer] [place] [id number] S [id number] [facility] [id number] [facility] [place] [id number] SP [id number] [facility] Commercial [id number] Self [id number] [employer] [id number] [facility] -O/P [id number] [facility]CL[facility]IC [id number] 18 [id number] [employer] DIST [id number] SP [id number] [facility] P [id number] S [id number] [place] [facility] P [id number] [address] [id number] [facility] [id number] Problems, Conditions, and Diagnoses Code Display Name Description Problem Type Effective Dates Data Source(s) K21.9 Gastro-esophageal reflux disease without esophagitis Gastro-esophageal reflux disease without Diagnosis 04/15/2020 03:15:[address] [facility] [place] R60.0 Localized edema Localized edema Diagnosis 04/15/2020 03:1 5:36 PM [facility] I10 Essential (primary) hypertension Essential (primary) h ypertension Diagnosis 04/15/2020 03:15:36 PM [facility] E78.5 Hyperlipidemia, unspecified Hyperlipidemia, unspecifie d Diagnosis 04/15/2020 03:15:36 PM [facility] R19.04 Left lower quadrant abdominal swelling, mass and lump LEFT LOWER QUADRANT ABDOMINAL SWELLING, MASS AND LUMP Diagnosis 08/08/2019 03:55:00 PM [facility] I10 Essential (primary) hypertension ESSENTIAL (PRIMARY) H YPERTENSION Diagnosis 08/08/2019 03:55:00 PM [facility] E78.2 Mixed hyperlipidemia MIXED HYPERLIPIDEMIA Diagnosis 08/08/2019 03:55:00 PM [facility] K21.0 Gastro-esophageal reflux disease with es ophagitis GASTRO-ESOPHAGEAL REFLUX DISEASE WITH ESOPHAGITIS Diagnosis 08/08/2019 03:55:00 PM [facility] E11.9 Type 2 diabetes mellitus without complic ations TYPE 2 DIABETES MELLITUS WITHOUT COMPLICATIONS Diagnosis 08/08/2019 03:55:00 PM [facility] E55.9 Vitamin D deficiency, unspecified VITAMIN D DEFI CIENCY, UNSPECIFIED Diagnosis 08/08/2019 03:55:00 PM [facility] Surgeries/Procedures Procedure Description Date Indications Data Source(s) OFFICE OUTPATIENT VISIT 10 MINUTES OFFICE/OUTPATIENT VISIT E ST 08/08/2019 12:00:00 AM EDT [facility] Results ID Date Data Source [id number] 04/27/2020 09:00:00 AM EST [facility] Name Value Range Interpretation Code Description Data Kimmie rce(s) Supporting Document(s) SARS coronavirus 2 RNA Not Detected [facility] [place] This lab was ordered by [facility] and reported by [facility]. ID Date Data Source [id number] 04/18/2020 09:19:00 AM [facility] Name Value Range Interpretation Code Description Data Kimmie rce(s) Supporting Document(s) Hemoglobin A1c Normal (applies to non-numeric r esults) [facility] Reference Range Normal: < 5.7% Pr ediabetes: 5.7-6.4% Diabetes: > 6.5% Estimated Avg Glucose 117 mg/dL 126-240 Below low normal [facility] ID Date Data Source [id number] 04/17/2020 08:13:00 PM EST [facility] Name Value Range Interpretation Code Description Data Kimmie rce(s) Supporting Document(s) Sodium 140 mmol/L 136-145 Normal (applies to non-numeric resul ts) [facility] Potassium 3.5-5.1 Normal (applies to non-numeric resul ts) [facility] Chloride 100 mmol/L 98-107 Normal (applies to non-numeric resul ts) [facility] Carbon Dioxide CO2 21-32 Normal (applies to non-numer ic results) [facility] Anion Gap 5.0-16.0 Normal (applies to non-numeric resul ts) [facility] BUN 23 mg/dL 7-18 Above high normal [facility] ospital Creatinine,Serum 0.7-1.2 Normal (applies to non-numeric results) [facility] GFR 54 mL/min >60 Below low normal [facility] spital Glucose Level 93 mg/dL 60-99 Normal (applies to non-numeric re sults) [facility] Reference range is only applicable when patient is fasting Note the following drug interference: Sulfasalazine Sulfapyridine Can see falsely depressed Can see falsely elevated result with up to 17% results with up to 11% decrease in measurement increase in measurement Recommend patients be collected for this test prior to administration of either drug. Calcium 8.5-10.1 Normal (applies to non-numeric resul ts) [facility] ID Date Data Source [id number] 04/17/2020 08:13:00 PM EST [facility] Name Value Range Interpretation Code Description Data Kimmie rce(s) Supporting Document(s) Triglycerides 198 mg/dL <150 Above high normal [facility] Cholesterol 219 mg/dL 100-200 Above high normal [facility] LDL Cholesterol Calculated 126 0-130 Normal (applies to n on-numeric results) [facility] HDL Cholesterol 53 mg/dL 40-60 Normal (applies to non-numeric results) [facility] Cholesterol/HDL Ratio 3.6-6.7 Normal (applies to non-nu meric results) [facility] ID Date Data Source [id number] 04/17/2020 07:54:00 PM EST [facility] Name Value Range Interpretation Code Description Data Kimmie rce(s) Supporting Document(s) White Blood Count 3.5-10.5 Normal (applies to non-numeri c results) [facility] Red Blood Count 3.90-5.00 Normal (applies to non-numeric results) [facility] Hemoglobin 12.0-15.5 Normal (applies to non-numeric resul ts) [facility] Hematocrit 34.9-44.5 Normal (applies to non-numeric resul ts) [facility] Mean Corpuscular Volume 81.2-95.1 Normal (applies to non- numeric results) [facility] Mean Corpuscular Hgb 25.6-32.2 Normal (applies to non-num jude results) [facility] Mean Corpuscular Hgb Conc 32.0-36.0 Normal (applies to no n-numeric results) [facility] Red Cell Distribution Width 11.9-15.5 Normal (appli es to non-numeric results) [facility] Platelet Count 236 x10 3/uL 150-450 Normal (applies to non-numeric results) [facility] Mean Platelet Volume 9.4-12.4 Normal (applies to non-num jude results) [facility] Neutrophils% (Auto) 31.0-71.0 Normal (applies to non-nume darrick results) [facility] Lymphocytes% (Auto) 20.0-55.0 Normal (applies to non-nume darrick results) [facility] Monocytes% (Auto) 4.0-12.0 Normal (applies to non-numeri c results) [facility] Eosinophils% (Auto) 1.0-8.0 Normal (applies to non-nume darrick results) [facility] Basophils% (Auto) 0.0-2.0 Normal (applies to non-numeri c results) [facility] Immature Granulocytes% (Auto) 0.0-2.0 Normal (hes[place] lies to non-numeric results) [facility] Neutrophils# (Auto) 1.50-6.20 Normal (applies to non-nume darrick results) [facility] Lymphocytes# (Auto) 1.20-4.00 Normal (applies to non-nume darrick results) [facility] Monocytes# (Auto) 0.00-0.90 Normal (applies to non-numeri c results) [facility] Eosinophils# (Auto) 0.00-0.50 Normal (applies to non-nume darrick results) [facility] Basophils# (Auto) 0.00-0.20 Normal (applies to non-numeri c results) [facility] Immature Granulocytes# (Auto) 0.00-7.00 No rmal (applies to non-numeric results) [facility] ID Date Data Source [id number] 02/29/2020 07:45:00 AM EST [facility] Imaging Services Department Imaging Report [address] [place], [place] [address] %(RAD)RES..mtdd.print.filter("line") Name: BLAYNE JULES : 1960 Age/Sex: 59F Ordering Provider: Delores Gandhi MD Med Rec #: [id number] Reg Status: DEP REF Room #: Date of Service: 02/28/20 Report Number: [id number] cc:Octavia Aldrich MD; Delores Gandhi MD Send Report To: [id number] MRI/MRI Pelvis w&wo Contrast Reason for exam: INTRAMURAL LEIOMYOMA OF UTERUS FINDINGS: There are at least five intermural fibroids in the uterus. The largest of these measures 5.8 x 5.5 cm, previously measuring 5.8 x 5.5 cm. Thisis located in the right aspect of the uterus. Slightly superior to this there is a 3.1 x 2.1 cm enhancing intermural fibroid. On the left aspect of the uterus there is a 4.1 x 4.4 cm enhancing fibroid. These last two fibroids are unchanged compared to the prior exam. It is difficult to visualize the endometrium. The endometrium is only faintly visualized in the lo wer uterine segment and measures approximately 4 mm in diameter. The remainder of the endometrial cavity is markedly distorted by the fibroids. There is a stable fat containing hernia anteriorly measuring 8.1 x 4.2 cm. The anterior abdominal wall defect is approximately 2 cm in size. The visualized bowel loops are normal in caliber. There is no acute osseous abnormality. IMPRESSION: Multiple stable uterine fibroids compared to the prior exam from 11/2019. Time portable performed: Fluoroscopy time in seconds: Number of Exposures: Contrast Agent in ml: Multihance 15 Method of Administration: Intraveneous REPORT SIGNATURE ON FILE Reported By: Mert Georges MD <Electronically signed by Mert Georges MD> 02/29/20 1005 Dictation Date/Time: 02/28/20 3661 Transcribed Date/Time: 02/29/20 0725 Cocktail Lounge Manager: NANCY Name Value Range Interpretation Code Description Data Kimmie rce(s) Supporting Document(s) ID Date Data Source [id number] 11/10/2019 04:48:00 PM EDT [facility] Imaging Services Department Imaging Report [address] [place], [place] [address] %(RAD)RES..mtdd.print.filter("line") Name: BLAYNE JULES : 1960 Age/Sex: 59F Ordering Provider: Octavia Aldrich MD [facility] Rec #: [id number] Reg Status: [facility] REF Room #: Date of Service: 11/10/19 Report Number: [id number] cc:Octavia Aldrich MD Send Report To: [id number] MRI/MRI Pelvis w&wo Contrast Reason for exam: PELVIC MASS Comparison: CT scan from 11-02-19. FINDINGS: The uterus is enlarged measuring approximately 8.4 cm x 8.9 cm x 8.1 cm. There are several round hypointense masses within the uterine myometrium consistent with leiomyomata. One of the largest is seen posteriorly at the uterine body on the right side measuring approximately 6.1 cm x 5.8 cm x 6.2 cm. These uterine leiomyomata and enlargement of the uterus corresponds with the CTfindings. The leiomyomata enhance heterogeneously after the contrast administration. The leiomyomata distorts the uterus. The endometrium is not well visualized. There is a portion of the endometrium that is seen that appears to be within normal limits measuring about 0.4 cm. No free fluid, pneumoperitoneum or lymphadenopathy is identified. The ovaries are difficult to see, what maybe the right ovary measures approximately 1.3 cm x 0.7 cm x 1.5 cm. What maybe he left ovary measures approximately 1.3 cm x 1.3 cm x 1.3 cm. These areas that are suspected to be the ovaries appear unremarkable. A moderate size fat containing umbilical hernia is present. The urinary bladder appears unremarkable. IMPRESSION: Enlarged bulky uterus with several low signal intensity masses compatible with leiomyomata as described. These masses distort the endometrium which is not well visualized. What appear to be the ovaries are unremarkable. Amoderate size fat containing umbilical hernia. Otherwise, no acute disease. Time portable performed: Fluoroscopy time in seconds: Number of Exposures: Contrast Agent in ml: Multihance 15 Method of Administration: Intraveneous REPORT SIGNATURE ON FILE Reported By: Pete Barrett MD <Electronically signed by Pete Barrett MD> 11/14/19 1158 Dictation Date/Time: 11/10/19 1524 Transcribed Date/Time: 11/10/19 1648 Cocktail Lounge Manager: WILMER Name Value Range Interpretation Code Description Data Kimmie rce(s) Supporting Document(s) ID Date Data Source [id number] 11/03/2019 05:49:00 AM EDT [facility] Imaging Services Department Imaging Report [address] [place], [place] [address] %(RAD)RES..mtdd.print.filter("line") Name: BLAYNE JULES : 1960 Age/Sex: 59F Ordering Provider: Octavia Aldrich MD Med Rec #: [id number] Reg Status: DEP REF Room #: Date of Service: 11/02/19 Report Number: [id number] cc:Octavia Aldrich MD Send Report To: [id number] CT/CT Abdomen & Pelvis w Con Reason for exam: CYST OF RT OVARY Comparison: Ultrasound 10-08-19 FINDINGS: The liver is enlarged measuring 22.4 cm. No focal hepatic lesion isseen. The spleen is enlarged measuring 14.7 cm. No focal splenic lesion is seen. The pancreas, adrenals, kidneys, gallbladder appear unremarkable. There is no bowel dilatation or evidence of obstruction. No free fluid, pneumoperitoneum or lymphadenopathy is identified. There is a small to moderate size fat containing umbilical hernia. The appendix is normal size without any adjacent inflammation to suggest appendicitis. There are some sigmoid diverticula without any adjacent inflammation to suggest diverticulitis. There is a soft tissue mass in the pelvis. This is seen at midline, extending tothe right of midline and to the right adnexa. There is question if the patient's uterus is in this vicinity. This mass measures soft tissue density up to about 55 Hounsfield units. It has some areasof calcification. It measures about 10 cm AP x 7.4 cm transverse x 7.5 cm craniocaudal. What appears to be the left ovary is unremarkable. The right ovary is not clearly identified. The urinary bladder is unremarkable. The aorta is normal size without focal aneurysm. The lung bases has some mild atelectasis. No suspicious osseous lesion or acute fracture is seen. There is severe spurring at L4/5 with severe disc space narrowing. IMPRESSION: 10.1 cm x 7.4 cm x 7.5 cm solid mass in the pelvis at midline and extending to the right adnexa. It is questioned if the uterus is in this vicinity. I suspect this maybe a large exophytic leiomyoma. The right ovary is not clearly seen. The left ovary appears unremarkable. I suppose that ovarian lesion is possible, but I would suggest further evaluation with MRI scan of the pelvis without and with contrast for further characterization. Small to moderatesize fat containing umbilical hernia. Sigmoid diverticula. No diverticulitis. Hepatomegaly and splenomegaly as described. While performing the above CT exam, the following dose reduction techniques wereused: *Automated exposure control *Adjustment of the mA and/or kV according t o patient size *Use of iterative reconstruction technique CT Dose in mGy: 20.5 Contrast Agent: Isovue 300 Amount in ml: 85 Method of Administration: Intraveneous REPORT SIGNATURE ON FILE Reported By: Pete Barrett MD <Electronically signed by Pete Barrett MD> 11/06/19 1106 Dictation Date/Time: 11/02/19 1542 Transcribed Date/Time: 11/03/19 0549 Transcri ptionist: WILMER Name Value Range Interpretation Code Description Data [facility] rce(s) Supporting Document(s) ID Date Data Source [id number] 11/01/2019 03:18:00 PM EDT [facility] Name Value Range Interpretation Code Description Data [facility] Supporting Document(s) CA 125 result 8 U/mL <46 Normal (applies to non-numeric re sults) [facility] ADDITIONAL INFORMATIO N The testing method is an electrochemiluminescence assay manufactured by [employer] and performed on the Antonina system. Values obtained with different assay methods or kits may be different and cannot be used interchangeably. Test results cannot be interpreted as absolute evidence for the presence or absence of malignant d isease. Test Performed by: [place] [address] Net Coordinator: Ramy Borja M.D. Ph.D.; CLIA# [id number] ID Date Data Source [id number] 11/01/2019 03:18:00 PM [facility] Name Value Range Interpretation Code Description Data [facility](s) Supporting Document(s) CA 19-9 result 21 U/mL <35 Normal (applies to non-numeric r esults) [facility] ADDITIONAL INFORMATIO N The testing method is an immunoenzymatic assay manufactured by [employer] and performed on the [employer] DxI 800. Values obtained with different assay methods or kits may be different and cannot be used interchangeably. Test results cannot be interpreted as absolute evidence for the presence or absence of malignant disease. Test Performed by: [place] [address] Net Coordinator: Ramy Borja M.D. Ph.D.; CLIA# [id number] ID Date Data Source [id number] 11/01/2019 02:59:00 PM EDT [facility] Value Range Interpretation Code Description Data Kimmie rce(s) Supporting Document(s) CA 125 Antigen result 8 U/mL <46 Normal (applies to non-nu meric results) [facility] ADDITIONAL INFORMATIO N The testing method is an electrochemiluminescence assay manufactured by [employer] and performed on the Antonina system. Values obtained with different assay methods or kits may be different and cannot be used interchangeably. Test results cannot be interpreted as absolute evidence for the presence or absence of malignant d isease. Test Performed by: [place] [address] Net Coordinator: Ramy Borja M.D. Ph.D.; CLIA# [id number] ID Date Data Source [id number] 11/01/2019 02:59:00 PM EDT [facility] Value Range Interpretation Code Description Data Kimmie rce(s) Supporting Document(s) CA 19-9 Antigen result 21 U/mL <35 Normal (applies to non-n umeric results) [facility] ADDITIONAL INFORMATIO N The testing method is an immunoenzymatic assay manufactured by [employer] and performed on the [employer] DxI 800. Values obtained with different assay methods or kits may be different and cannot be used interchangeably. Test results cannot be interpreted as absolute evidence for the presence or absence of malignant disease. Test Performed by: [place] [address] Net Coordinator: Ramy Borja M.D. Ph.D.; CLIA# [id number] ID Date Data Source [id number] [facility] Interpretation Code Description Data Kimmie rce(s) Supporting Document(s) CEA result 0.2-5.0 Normal (applies to non-numeric resul ts) [facility] % Distribution of CEA 0 - 2.5 in 98.2% of nonsmokers and 87.3% of smokers 2.6 - 5.0 in 1.8% of non-smokers and 8.0% of smokers Serum CEA concentrations should not be interpreted as absolute evidence for the presence or absence of malignant disease. Assayed utilizing the [employer] Centaur chemiluminometric technology. Values obtained by using different assay methods cannot be used interchangeably. ID Date Data Source [id number] 10/30/2019 10:13:[address] [facility] Name Value Range Interpretation Code Description Data Kimmie rce(s) Supporting Document(s) CEA 0.2-5.0 Normal (applies to non-numeric results) [facility] % Distribution of CEA 0 - 2.5 in 98.2% of nonsmokers and 87.3% of smokers 2.6 - 5.0 in 1.8% of non-smokers and 8.0% of smokers Serum CEA concentrations should not be interpreted as absolute evidence for the presence or absence of malignant disease. Assayed utilizing the [employer] Centaur chemiluminometric technology. Values obtained by using different assay methods cannot be used interchangeably. ID Date Data Source [id number] 10/27/2019 05:52:00 AM EDT [facility] Imaging Services Department Imaging Report [address] [place] [id number] %(RAD)RES..mtdd.print.filter("line") Name: BLAYNE JULES : 1960 Age/Sex: 59F Ordering Provider: Octavia Aldrich MD Med Rec #: [id number] Reg Status: DEP REF Room #: Date of Service: 10/26/19 Report Number: [id number] cc:Octavia Aldrich MD Send Report To: [id number] US/US Abd Limited Single Organ Reason for exam: ABD MASS, LLQ FINDINGS: Thorough scanning of the lower abdomen was performed. There is a 10.8 x 6.2 cm hypoechoic region identified with some through transmission that may be a cystic ovarian lesion. Follow up CT is recommended for further evaluation. IMPRESSION: 10.8 x 6.2 cm hypoechoic region in the lower abdomen concerning kelby ovarian cystic mass. Follow up contrasted CT abdomen and pelvis recommended. Correlation with CA-125 levels may also be helpful. REPORT SIGNATURE ON FILE Reported By: Mario Wheat MD <Electronically signed by Mellissa Wheat MD> 10/27/19 1222 Dictation Date/Time: 10/26/19 1126 Transcribed Date/Time: 10/27/19 0552 Cocktail Lounge Manager: NANCY Name Value Range Interpretation Code Description Data Kimmie rce(s) Supporting Document(s) ID Date Data Source [id number] 10/26/2019 08:39:00 AM EDT [facility] Name Value Range Interpretation Code Description Data [facility] rce(s) Supporting Document(s) Color,Urine Colorl-Dk Y Normal (applies to non-numeric res ults) [facility] Clarity,Urine Clear Normal (applies to non-numeric re sults) [facility] Specific [place],Urine 1.005-1.030 Normal (applies to non- numeric results) [facility] pH,Urine 5.0-8.0 Normal (applies to non-numeric resul ts) [facility] Protein,Urine Negative Normal (applies to non-numeric re sults) [facility] Glucose,Urine Negative Normal (applies to non-numeric re sults) [facility] Ketones,Urine Negative Normal (applies to non-numeric re sults) [facility] Blood,Urine Negative Normal (applies to non-numeric resu lts) [facility] Bilirubin,Urine Negative [facility] pital Urobilinogen,Urine 0.2-1.0 Normal (applies to non-numer ic results) [facility] Leukocyte Esterase,Urine Negative Normal (applies to non -numeric results) [facility] Nitrite,Urine Negative Normal (applies to non-numeric re sults) [facility] RBC,Urine None Seen Normal (applies to non-numeric resul ts) [facility] WBC,Urine None Seen [facility] Casts,Urine None Seen [facility] l Squamous Cells,Urine None Seen [facility] Transitional Cells,Ur None Seen [facility] Bacteria,Urine None Seen Normal (applies to non-numeric r esults) [facility] Mucus,Urine None Seen [facility] l ID Date Data Source [id number] 11/01/2019 09:53:00 AM EDT [facility] Name Value Range Interpretation Code Description Data [facility](s) Supporting Document(s) Vitamin D 1,25 result 41 pg/mL 18-78 Normal (applies to non-nu meric results) [facility] ADDITIONAL INFORMATIO N This test was developed and its performance characteristics determined by [facility] in a manner consistent with CLIA requirements. This test has not been cleared or approved by the U.S. Food and Drug Administration. Test Performed by: [facility] [place] [address] Net Coordinator: Ramy Borja M.D. Ph.D.; CLIA# [id number] ID Date Data Source [id number] 11/01/2019 09:11:00 AM EDT [facility] Name Value Range Interpretation Code Description Data [facility](s) Supporting Document(s) Vitamin D 1,25 result 41 pg/mL 18-78 Normal (applies to non-nu meric results) [facility] ADDITIONAL INFORMATIO N This test was developed and its performance characteristics determined by [facility] in a manner consistent with CLIA requirements. This test has not been cleared or approved by the U.S. Food and Drug Administration. Test Performed by: [facility] [address] [place] [address] Net Coordinator: Ramy Borja M.D. Ph.D.; CLIA# [id number] ID Date Data Source [id number] 10/26/2019 08:49:00 AM EDT [facility] Name Value Range Interpretation Code Description Data Kimmie rce(s) Supporting Document(s) Sodium 142 mmol/L 136-145 Normal (applies to non-numeric resul ts) [facility] Potassium 3.5-5.1 Normal (applies to non-numeric resul ts) [facility] Chloride 102 mmol/L 98-107 Normal (applies to non-numeric resul ts) [facility] Carbon Dioxide CO2 21-32 Normal (applies to non-numer ic results) [facility] Anion Gap 5.0-16.0 Normal (applies to non-numeric resul ts) [facility] BUN 17 mg/dL 7-18 Normal (applies to non-numeric results) [facility] Creatinine,Serum 0.7-1.2 Normal (applies to non-numeric results) [facility] GFR 60 mL/min >60 Normal (applies to non-numeric results) [facility] Glucose Level 120 mg/dL 60-99 Above high normal [facility] Reference range is only applicable when patient is fasting Note the following drug interference: Sulfasalazine Sulfapyridine Can see falsely depressed Can see falsely elevated result with up to 17% results with up to 11% decrease in measurement increase in measurement Recommend patients be collected for this test prior to administration of either drug. Calcium 8.5-10.1 Normal (applies to non-numeric resul ts) [facility] Bilirubin,Total 0.1-1.9 Normal (applies to non-numeric results) [facility] SGOT(AST) 12 U/L 15-37 Below low normal [facility] [facility] Note the following drug interference: Sulfasalazine Sulfapyridine Can see falsely depressed Can see falsely elevated result with up to 10% results with up to 10% decrease in measurement increase in measurement Recommend patients be collected for this test prior to administration of either drug. SGPT(ALT) 23 U/L 12-78 Normal (applies to non-numeric resul ts) [facility] Note the following drug interference: Sulfasalazine Sulfapyridine Can see falsely depressed Can see falsely elevated result with up to 29% results with up to 10% decrease in measurement increase in measurement Recommend patients be collected for this test prior to administration of either drug. Alkaline Phosphatase 75 U/L 38-126 Normal (applies to non-num jude results) [facility] can increase Alkaline Phosp le vels up to 2 times the normal adult value. Normal values for children and adolescents are 2 to 3 times the normal adult value. Total Protein 6.0-8.2 Normal (applies to non-numeric re sults) [facility] Albumin Level 3.4-5.0 Normal (applies to non-numeric re sults) [facility] ID Date Data Source [id number] 10/26/2019 08:49:00 AM EDT [facility] Name Value Range Interpretation Code Description Data Kimmie rce(s) Supporting Document(s) Triglycerides 148 mg/dL <150 Normal (applies to non-numeric re sults) [facility] Cholesterol 225 mg/dL 100-200 Above high normal [facility] LDL Cholesterol Calculated 158 0-130 Above high normal [facility] HDL Cholesterol 37 mg/dL 40-60 Below low normal [facility] Cholesterol/HDL Ratio 3.6-6.7 Normal (applies to non-nu meric results) [facility] ID Date Data Source [id number] 10/26/2019 08:36:00 AM EDT [facility] Name Value Range Interpretation Code Description Data Kimmie rce(s) Supporting Document(s) Hemoglobin A1c 4.4-6.2 Normal (applies to non-numeric r esults) [facility] Estimated Avg Glucose 123 mg/dL 126-240 Below low normal [facility] ID Date Data Source [id number] 09/15/2019 12:00:00 PM EDT [facility] ([facility] [employer]) Name Value Range Interpretation Code Description Data Kimmie e(s) Supporting Document(s) TP Reflex HPV ASCUS Laboratory test result [facility] (Mario Cm [employer] OPER[employer]) TP Reflex HPV ASCUS Laboratory test result [facility] (Mario [facility] [employer] OPERATOR) SPECIMEN PART------ A. Cervical, Endocervical, ThinPrep Pap (Filter Screen Cleaner) CYTOLOGY HX-------- Other Information: Ablation Previous Normal Pap: 09/13/2018 FINAL DIAGNOSIS---- INTERPRETATION: Negative for Intraepithelial Lesion or Malignancy. SPECIMEN ADEQUACY:Satisfactory for evaluation. Endocervical/transformation zone component present. ID Date Data Source [id number] 04/22/2019 12:59:00 PM [facility] Name Value Range Interpretation Code Description Data [facility] Supporting Document(s) Hemoglobin A1c 4.4-6.2 Above high normal [facility] Estimated Avg Glucose 143 mg/dL 126-240 Normal (applies to non-numeric results) [facility] ID Date Data Source [id number] 04/22/2019 12:58:00 PM [facility] Name Value Range Interpretation Code Description Data Kimmie e(s) Supporting Document(s) Sodium 141 mmol/L 136-145 Normal (applies to non-numeric resul ts) [facility] Potassium 3.5-5.1 Normal (applies to non-numeric resul ts) [facility] Chloride 102 mmol/L 98-107 Normal (applies to non-numeric resul ts) [facility] Carbon Dioxide CO2 21-32 Normal (applies to non-numer ic results) [facility] Anion Gap 5.0-16.0 Normal (applies to non-numeric resul ts) [facility] BUN 18 mg/dL 7-18 Normal (applies to non-numeric results) [facility] Creatinine,Serum 0.7-1.2 Normal (applies to non-numeric results) [facility] GFR >60 Normal (applies to non-numeric results) [facility] Glucose Level 115 mg/dL 60-99 Above high normal [facility] Reference range is only applicable when patient is fasting Note the following drug interference: Sulfasalazine Sulfapyridine Can see falsely depressed Can see falsely elevated result with up to 17% results with up to 11% decrease in measurement increase in measurement Recommend patients be collected for this test prior to administration of either drug. Calcium 8.5-10.1 Normal (applies to non-numeric resul ts) [facility] Bilirubin,Total 0.1-1.9 Normal (applies to non-numeric results) [facility] SGOT(AST) 16 U/L 15-37 Normal (applies to non-numeric resul ts) [facility] Note the following drug interference: Sulfasalazine Sulfapyridine Can see falsely depressed Can see falsely elevated result with up to 10% results with up to 10% decrease in measurement increase in measurement Recommend patients be collected for this test prior to administration of either drug. SGPT(ALT) 29 U/L 12-78 Normal (applies to non-numeric resul ts) [facility] Note the following drug interference: Sulfasalazine Sulfapyridine Can see falsely depressed Can see falsely elevated result with up to 29% results with up to 10% decrease in measurement increase in measurement Recommend patients be collected for this test prior to administration of either drug. Alkaline Phosphatase 97 U/L 38-126 Normal (applies to non-num jude results) [facility] can increase Alkaline Phosp le vels up to 2 times the normal adult value. Normal values for children and adolescents are 2 to 3 times the normal adult value. Total Protein 6.0-8.2 Normal (applies to non-numeric re sults) [facility] Albumin Level 3.4-5.0 Normal (applies to non-numeric re sults) [facility] Procedure Social History Code Duration Value Status Description Data Source(s ) Smoking 03/11/2020 12:00:00 AM EST Patient has never smoked co mpleted Patient has never smoked [facility] ([facility] [employer]) Vital Signs ID Date Data Source UNK Name Value Range Interpretation Code Description Data Source(s) Diastolic blood pressure 98 mm[Hg] 98 mm[Hg] [facility] ([facility] [employer]) Systolic blood pressure 178 mm[Hg] 178 mm[Hg] [facility] ([facility] [employer]) Body surface area Derived from formula 2.30 m2 2.30 m2 [facility] ([facility] [employer]PER[employer]) Body mass index (BMI) [Ratio] 39.7 kg/m2 39.7 k g/m2 [facility] ([facility] [employer]PER[employer]) Body weight 263.00 [lb_av] 263.00 [lb_av] [facility] ([facility] [employer] OPERATOR) Body height 68.25 [in_i] 68.25 [in_i] [facility] (W ise Woman [employer] OPERATOR) 5'8.25" Diastolic blood pressure 68 mm[Hg] 68 mm[Hg] [facility] ([facility] [employer]PER[employer]) Systolic blood pressure 114 mm[Hg] 114 mm[Hg] M [facility] ([facility] [employer] OPERATOR) Body surface area 2.30 m2 2.30 m2 [facility] ([facility] [employer] OPERATOR)
[2020-05-02 09:59] LABS: HEMATOCRIT 46.5 % (36.0-47.0); HEMOGLOBIN 15.1 g/dl (12.0-15.5); MEAN CORPUSCULAR HEMOGLOBIN 28.9 pg (27.0-33.0); MEAN CORPUSCULAR HGB CONC 32.5 g/dl (32.0-36.5); MEAN CORPUSCULAR VOLUME 88.9 fl (80.0-96.0); PLATELET COUNT, AUTOMATED 214 10^3/uL (150-450); RED BLOOD COUNT 5.23 10^6/uL (4.00-5.40); WHITE BLOOD COUNT 4.5 10^3/uL (4.0-10.0)
[2020-05-02] MEDS ORDERED: HYDROmorphone HCL 2 MG/ML 1ML VIAL (J1170) As Ordered ONE (11:22)
[2020-05-02] MEDS ORDERED: fentaNYL 100 MCG/2 ML INJECTION (J3010) As Ordered ONE (13:51)
[2020-05-02] MEDS ORDERED: MORPHINE 1MG/ML IN 0.9% NACL 100ML IV BAG As Ordered ONE (13:51)
[2020-05-02] MEDS ORDERED: oxyCODONE 5MG TAB PO PRN (14:00)
[2020-05-02] MEDS ORDERED: LR 1,000 ML IV SCH (14:00)
[2020-05-02] MEDS ORDERED: NALOXONE INJ 0.4MG/1ML VIAL (J2310 PER 1MG) IV PRN (14:00)
[2020-05-02] MEDS ORDERED: EPIDURAL/PCA KEYS XX PRN (14:00)
[2020-05-02] MEDS ORDERED: diphenhydrAMINE 50MG/ML VIAL (J1200) IV PRN (14:00)
[2020-05-02] MEDS ORDERED: IBUPROFEN 600MG TAB PO PRN (14:00)
[2020-05-02] MEDS: LR 1,000 ML IV SCH ×2 (14:00→23:02)
[2020-05-02] MEDS ORDERED: ONDANSETRON 4MG/2ML VIAL IV PRN (14:00)
[2020-05-02] MEDS ORDERED: fentaNYL 100 MCG/2 ML INJECTION (J3010) IV PRN (14:00)
[2020-05-02] MEDS ORDERED: NS 1,000 ML IV SCH (14:00)
[2020-05-02] MEDS ORDERED: NALBUPHINE HCL 10 MG/ML AMP (J2300) IV PRN (14:00)
[2020-05-02] MEDS: MORPHINE 1MG/ML IN 0.9% NACL 100ML IV BAG IV PRN ×2 (14:05→14:16)
[2020-05-02 16:00] VITALS: BP 137/69
[2020-05-02 16:30] VITALS: BP 135/67
[2020-05-02 20:00] VITALS: BP 134/64
[2020-05-02] MEDS ORDERED: METOPROLOL TART 50 MG TAB PO SCH (21:00)
[2020-05-03 01:53] VITALS: BP 113/55
[2020-05-03 06:00] VITALS: BP 133/64
[2020-05-03] MEDS ORDERED: NORCO, ANEXSIA 5/325MG TABLET (HYDROcodone/ACETAMINOPHEN) PO PRN (06:00)
[2020-05-03] MEDS: LR 1,000 ML IV SCH (07:32)
[2020-05-03 07:45] LABS: HEMATOCRIT 37.1 % (36.0-47.0); HEMOGLOBIN 11.8 g/dl (12.0-15.5); MEAN CORPUSCULAR HEMOGLOBIN 28.6 pg (27.0-33.0); MEAN CORPUSCULAR HGB CONC 31.8 g/dl (32.0-36.5); PLATELET COUNT, AUTOMATED 181 10^3/uL (150-450); RED BLOOD COUNT 4.12 10^6/uL (4.00-5.40); WHITE BLOOD COUNT 7.8 10^3/uL (4.0-10.0)
[2020-05-03] MEDS: hydroCHLOROthiazide 12.5 MG CAPSULE PO SCH (09:53)
[2020-05-03 09:54] VITALS: BP 133/64
[2020-05-03] MEDS: PANTOPRAZOLE 40MG TAB (PROTONIX) PO SCH (09:54)
[2020-05-03] MEDS: IRBESARTAN 150MG TAB PO SCH (09:54)
[2020-05-03 10:00] VITALS: BP 138/67
--- NOTE | 2020-05-03 15:55 | RO ---
OPERATIVE NOTE DATE OF OPERATION: 05/02/2020 PREOPERATIVE DIAGNOSIS/INDICATION FOR SURGERY: Pain and fibroids. POSTOPERATIVE DIAGNOSIS: Pain and fibroids but also extensive dense adhesions as well as ventral incisional hernia, which was omental, and although there is a loop of bowel attached to the omental that is going into this hernia, there is no bowel in the hernia nor within 6 inches of the hernia, and the hernia, although fairly large, is not scarred and not sliding. PROCEDURE: Robotic-assisted hysterectomy with bilateral salpingo-oophorectomy and lysis of adhesions. SURGEON: Dr. Carlson EXPEDITER CLERK: Tigist Myrick SPECIMEN: Uterus, ovary, and tubes. This uterus was 258 grams in the room, so a more than 250 gram uterus. ANESTHESIA: General endotracheal anesthesia. BRIEF DESCRIPTION OF PROCEDURE AND FINDINGS: Magalys was brought to the operating room, where sufficient general endotracheal anesthesia was induced. She was prepped, draped, and positioned in usual sterile fashion, the uterine manipulator placed, and the Bautista with the ability to backfill placed. Attention was then turned to the abdomen. A semilunar transverse incision was made below the umbilicus. This was above the patient's ventral midline vertical incision scar. Sharp and blunt dissection were continued through the subcutaneous tissues to the level of rectus fascia, which was transversely incised and secured with 0 Vicryl retention sutures. We then turned our attention to the peritoneum, which was carefully bluntly entered and the Rosario cannula placed under direct visualization in an open laparoscopic technique. CO2 insufflation was then begun. Insufflation showed asymmetric filling of the abdomen, and on the anterior lower but just below umbilicus abdomen on the right side there was an asymmetric bulge of the tissues. We suspected anterior abdominal wall laxity, but, as noted later, there was a hernia there. While it is scarred in place and not sliding with the omentum, there certainly was enough room for CO2 to get into this space. At this point, we did not know that. We let her fill to an appropriate amount and then placed a laparoscope for visualization. After adequate CO2 insufflation, the laparoscope was used to visualize the peritoneal cavity. Dense adhesions versus hernia were noted to the mid lower anterior abdomen and also omental sheet covering the entire pelvis. Pictures taken. We tried to see if we could just go around this with the camera. We could certainly see down to the pelvis. We could also see that we had perforated the uterus, but as one can see in the pictures, there is fibroid off to one side and then the uterus kind of skiving off to the other because of the pressure of this large fibroid. There was not very much bleeding at the site of the perforation. Two left-sided and one right-sided ports were placed, and then before we docked the robot we placed the camera on the lower left side and tried to see with the other instruments if we could get a better look at the hernia. There was clearly a great deal of omentum involved, but there was no bowel going up into the hernia at all. After freeing just a few adhesions around the base of the hernia, we tried to see if we could slide it out, but it did not budge, even with fairly persistent but gentle traction. There was really no mobility there at all. Of course, the patient was not consented for hernia repair, and based on the opening I would be strongly suspicious that she would heal better with mesh repair, so a decision was made to work around this, especially once we had confirmed that the bowel was well away from it and that we were not going to be at risk of putting the camera close to the bowel, because, of course, this camera does get relatively warm. Having confirmed that, we went ahead and docked the robot and began the work for the hysterectomy. Working from the robotic console, we spent nearly half the time of the procedure dissecting free the adhesions and freeing up the atypical changes in the uterus, which my guess would be section. I think that this sheet of omentum was probably laid over the uterus, but it is adherent not just at some various points, as initially it appeared that it might just be sort of tacked out over the uterus, but it actually was just flatly adherent to the tissues, and then the uterus itself was adherent to the bladder in an atypical fashion, and so extensive work on these adhesions was undertaken. We were able to do the overwhelming majority of this without the need for cautery. There were a few vessels here and there that needed to be controlled, but once we had freed the omentum over the anterior uterus so that we could at least see, we could then see the infundibulopelvic. We did have some descending colon adhesions, but that is obviously quite common. We took those down as well, and then we had the infundibulopelvic free on the left side. We went ahead and cauterized and transected it, worked down to the round ligament. The uterus and the fibroids within the uterus as well as this large pedunculated fibroid very much distorted the tissues, but we were able to clearly identify uterosacrals, round, etc., and so we went ahead and cauterized and transected through the infundibulopelvic, through the mesentery of the superior broad ligament, and then to the mesentery of the ovary and then through the round and then dissected back through the superior peritoneum of the broad ligament, and then we paused on further dissection through the bladder on the left side, because it was folded up against the uterus, and there were quite a few adhesions still there over the lower uterine segment and the anterior uterus. We then went ahead and freed up the infundibulopelvic on the right side and the round ligament on the right side. Again there were further adhesions. Then we backfilled the bladder several times as we were carefully dissecting down these adhesions to try to free up the space to the cup, and of course with all these fibroids the patient has extensive vascular supply, so we were careful to come well above the insertion of the uterosacrals and cauterize those vessels, come in on the uterus, and then free the tissues anteriorly. After backfilling several times and getting that bladder down quite well, we were then able to make the colpotomy anteriorly and work around through the uterine vasculature on the left. Then there was some scarring around the left side, which is pictured, so we paused when we had that under control and back to the right and transected the tissues there and then worked around the posteriorly, again, working above where the insertion to the uterosacrals was so we could leave that still attached for support. Having freed the uterus with the colpotomy that was circumferential, we went ahead and delivered it through the vagina. There was definitely effort there. We did have to do some myomectomies from the vaginal approach in order to get it out in that direction, and we did, of course, take the uterus sideways, which one can see on the operative report and operative photos that with it turned sideways we could then pull out some of the fibroids and delivery it that way. Then the larger fibroid actually had some clustered smaller ones there, so we were able to just pull old fibroids off and make it small enough to deliver with some effort. Again, uterus was weighed in the room. It was 258 grams. We then went back to the robotic console and working from the robot took the angle stitches, resupported the uterosacrals, and closed the cuff using V-Loc suture with good approximation and hemostasis achieved. The procedure was then ended with CO2 allowed to escape the abdomen. We did our best to remove as much of the CO2 from the hernia pocket as possible and went ahead and closed the umbilical wound at the deep part of the umbilical wound with 0 Vicryl suture, and then the skin at all four wounds was closed with 3-0 Vicryl in subcuticular stitch, and dry sterile dressings were then applied. ESTIMATED BLOOD LOSS FOR PROCEDURE: About 258 grams. FLUID REPLACEMENT: Crystalloid. COMPLICATIONS: None. CONDITION AND DISPOSITION: Magalys tolerated the procedure well and was recovering the recovery room in good condition.
== END 2020-05-03 11:34 | disposition home or self-care (01) ==
LOC: M SDC 09:15 → M MS5PR 15:50 → M SDC 05-03 11:34
PROVIDERS: ATTEND Obstetrics & Gynecology
DX: R10.2 Pelvic and perineal pain (principal); D25.9 Leiomyoma of uterus, unspecified; K66.0 Peritoneal adhesions (postprocedural) (postinfection); I10 Essential (primary) hypertension; Z79.899 Other long term (current) drug therapy; Z88.8 Allergy status to other drugs, medicaments and biological substances
CPT/HCPCS: 36415; 49329; 58573; 85027; 86850; 86900; 86901; 88307; 96360; 96361; J0131; J0690; J1100; J1170; J1885; J2250; J2405; J3010

== ENCOUNTER → 2020-10-18 | Outpatient (CLI) | payer BC ==
[~2020-10-18] MED LIST changes: -ACETAMINOPHEN 1000MG 100ML IV BTL (OFIRMEV) (J0131 PER 10MG) As Ordered ONE; +ERGO500029 PO; -KETOROLAC 60MG 2ML VIAL As Ordered ONE; -LIDOCAINE 1% MDV 20ML VIAL SQ PRN; -LIDOCAINE 2% 100MG/5ML SDV (FOR ANES.) As Ordered ONE; -LR 1,000 ML IV ONE; -MIDAZOLAM INJ 2MG/2ML VIAL (J2250 PER 1MG) As Ordered ONE; -ONDANSETRON 4MG/2ML VIAL As Ordered ONE; -ROCURONIUM BROMIDE 50 MG/5 ML VIAL As Ordered ONE; -SUGAMMADEX SODIUM 500 MG/5 ML VIAL (BRIDION) As Ordered ONE; -VITA50005 PO; -ceFAZolin SOD 2 GM in IV 1 EA IV ONE; -dexameTHASONE 4 MG/ML 1ML VIAL (J1100 PER 1MG) As Ordered ONE; -fentaNYL 100 MCG/2 ML INJECTION (J3010) As Ordered ONE; -propofoL 200 MG/20 ML VIAL As Ordered ONE
--- NOTE | 2020-10-18 16:01 | REPMRS ---
Patient History The patient states she has not had a clinical breast exam in over a year. Family history of colorectal cancer at age 64 in maternal grandmother. Benign radio exam breast specimen of the right breast, October 27, 2012. Benign stereotatic loc for ea lesion of the right breast, October 27, 2012. Took hormonal contraceptives for 2 years. Pfizer vaccine 04/07/20 right arm 04/28/20 right arm. Patient states no breast complaints today. Patient has signed MRS History Sheet. Digital Woman Screen Mammo: October 18, 2020 - Exam #: [id number] Bilateral CC and MLO view(s) were taken. Technologist: RT Donal Prior study comparison: October 17, 2019, bilateral digital woman screen mammo performed at [facility] and [facility] [place]. September 26, 2018, bilateral digital mammo screening bilat, performed at [facility]. September 16, 2017, bilateral digital mammo screening bilat, performed at [facility]. FINDINGS: The breast tissue is almost entirely fat. The Volpara volumetric breast density category is: A. There is a needle biopsy marker clip noted in the right breast. There has been no change in the appearance of the mammogram from the prior studies. There is no interval development of dominant mass, architectural distortion, or grouped microcalcification typical of malignancy. 3-D tomosynthesis shows no additional findings. Assessment: BI-RADS/ACR category 2 mammogram. Benign Findings. Recommendation Routine screening mammogram of both breasts in 1 year (for women over age 40). This patient's [facility] Lifetime Breast Cancer RIsk is estimated at 6.0 %. This mammogram was interpreted with the aid of an FDA-approved computer-aided dectection system. Electronically Signed By: Mo Greenberg MD 10/18/20 0175
== END ==
LOC: M WHC 14:34
PROVIDERS: ATTEND Obstetrics & Gynecology
DX: Z12.31 Encounter for screening mammogram for malignant neoplasm of breast (principal); Z97.8 Presence of other specified devices

== ENCOUNTER → 2021-10-27 | Outpatient (CLI) | payer BC | LOC: M WHC 07:48 | PROVIDERS: ATTEND Obstetrics & Gynecology | DX: Z12.31 Encounter for screening mammogram for malignant neoplasm of breast (principal) ==

== ENCOUNTER → 2022-08-31 | Outpatient (REF) | payer BC | LOC: M SFHCWAGY 13:01 | PROVIDERS: ATTEND Nurse Practitioner Family | DX: Z12.4 Encounter for screening for malignant neoplasm of cervix (principal) ==

== ENCOUNTER → 2022-10-28 | Outpatient (CLI) | payer BC | LOC: M WHC 09:23 | PROVIDERS: ATTEND Nurse Practitioner Family | DX: Z12.31 Encounter for screening mammogram for malignant neoplasm of breast (principal) ==

== ENCOUNTER → 2023-11-25 | Outpatient (CLI) | payer BC | LOC: M WHC 13:07 | PROVIDERS: ATTEND Nurse Practitioner Family | DX: Z12.31 Encounter for screening mammogram for malignant neoplasm of breast (principal); Z97.8 Presence of other specified devices ==

== ENCOUNTER → 2024-11-28 | Outpatient (REF) | payer BC | LOC: M PLALAB 10:12 | PROVIDERS: ATTEND Physician Assistant | DX: R30.0 Dysuria (principal) ==

== ENCOUNTER → 2024-11-28 | Outpatient (CLI) | payer BC | LOC: M WHC 08:48 | PROVIDERS: ATTEND Physician Assistant | DX: Z12.31 Encounter for screening mammogram for malignant neoplasm of breast (principal) ==